=== PATIENT | female | born 1990 | race Caucasian/White ===

== ENCOUNTER 2017-04-18 10:36 | Emergency (ER) | payer MEDICAID ==
[~2017-04-18] VITALS: Ht 154.9 cm; Wt 70.0 kg
[2017-04-18 10:39] VITALS: Ht 154.9 cm; Wt 70.0 kg
[2017-04-18] MEDS ORDERED: ACETAMINOPHEN 325 MG TAB PO ONE (11:00)
--- NOTE | 2017-04-18 11:38 | RADRPT ---
PROCEDURE: US Abdomen. CLINICAL INDICATION: abdominal pain TECHNIQUE: Multiple real-time images were acquired of the patient's right upper quadrant abdomen a nd retroperitoneum utilizing a high resolution transducer. COMPARISON: None FINDINGS: The liver demonstrates normal echogenicity. The liver is normal in size and no focal solid lesions are seen. The liver measures 14.9 cm in length. The portal vein is patent with normal direction of f low. No intrahepatic biliary dilatation is seen. No gallstones are identified within the gallbladder. There is no pericholecystic fluid or gallbladd er wall thickening. The common bile duct measures 5 mm in maximal dimension. The visualized portions of the pancreas are unremarkable. The tail of the pancreas is not seen. No free fluid is identified. The right kidney is normal in size, and demonstrate normal echogenicity and cortical thickness. The right kidney measures 10.6 cm in long dimension. There is no evidence of hydronephrosis. There are no kidney stones. RPTAT: AA IMPRESSION: Unremarkable right upper quadrant abdominal ultrasound. .Jermaine Newby MD, Date Time Electronically viewed and signed by .Jermaine Newby MD, on 04/18/2017 11:38 .S/
[2017-04-18 11:40] LABS: BASOPHILS % 0.2 % (0.0-2.0); EOSINOPHILS % 0.4 % (0.0-7.0); HEMATOCRIT 31.6 % (37.0-47.0); HEMOGLOBIN 10.8 g/dl (12.0-16.0); LYMPHOCYTES % 17.5 % (15.0-51.0); MEAN CORPUSCULAR HGB CONC 34.2 g/dl (32.0-37.0); MEAN CORPUSCULAR VOLUME 87.8 fl (82.0-101.0); MEAN PLATELET VOLUME 10.5 fl (7.4-10.4); MONOCYTE # 0.5 10^3/ul (0.3-0.9); MONOCYTES % 4.7 % (0.0-11.0); NEUTROPHIL # 8.6 10^3/ul (1.6-7.5); NEUTROPHILS % 76.8 % (39.0-77.0); PLATELET COUNT 259 10^3/UL (140-415); RED CELL DISTRIBUTION WIDTH 13.3 % (11.5-14.5); WHITE BLOOD COUNT 11.1 10^3/ul (4.8-10.8)
--- NOTE | 2017-04-18 11:44 | RADRPT ---
PROCEDURE: US OB. CLINICAL INDICATION: Size and dates , abdominal pain TECHNIQUE: Multiple sonographic images of the pelvis and gravid uterus were obtained. The images were reviewed on a PACS workstation. COMPARISON: No prior studies are available for comparison. FINDINGS: There is a single viable intrauterine gestation. Cardiac activity is present with 136 beats per min [place]. There is a variable presentation. The placenta is posterior. There is no evidence for an abruption or placenta previa. There is a normal amount of amniotic fluid with a MVP= 3.8 cm. Measurements were made in order to determine age. The results are as follows: BPD =3.5 cm HC =12.8 cm AC =10.6 cm FL =2.2 cm Estimated gestational age of approximately 16 weeks and 5 days based on ultrasound measurements. Clinical age: 17 weeks and 3 days. The estimated date of delivery is 09/28/17, based on ultrasound measurements. The EFW = 163 g, 8%, based on LMP age. RPTAT: AA IMPRESSION: Single viable intrauterine gestation of approximately 16 weeks and 5 days based on ultrasound measu rements. .Jermaine Newby MD, Date Time Electronically viewed and signed by .Jermaine Newby MD, on 04/18/2017 11:44 .S/
[2017-04-18 12:26] LABS: ADD UMIC YES; UR ASCORBIC ACID NEGATIVE (NEGATIVE); UR BACTERIA FEW /HPF (NONE SEEN); UR BILIRUBIN (Dip) NEGATIVE (NEGATIVE); UR BLOOD (Dip) 1+ mg/dL (NEGATIVE); UR CLARITY CLOUDY (CLEAR); UR COLOR YELLOW (YELLOW); UR GLUCOSE (Dip) NEGATIVE (NEGATIVE); UR KETONES (Dip) TRACE mg/dL (NEGATIVE); UR LEUKOCYTE ESTERASE (Dip) 3+ Leu/ul (NEGATIVE); UR MUCUS MANY /HPF (NONE SEEN); UR NITRITE (Dip) NEGATIVE (NEGATIVE); UR RBC 13 /HPF (0-5); UR SPECIFIC GRAVITY (Dip) 1.031 (1.003-1.030); UR SQUAMOUS EPITHELIAL CELL MANY /HPF (FEW); UR TOTAL PROTEIN (Dip) 1+ mg/dl (NEGATIVE); UR UROBILINOGEN (Dip) NEGATIVE (NEGATIVE)
[2017-04-18] MEDS ORDERED: CEPHALEXIN 500 MG CAP PO ONE (12:30)
[2017-04-18 13:47] LABS: ALBUMIN 3.8 g/dl (3.3-4.9); ALBUMIN/GLOBULIN RATIO 1.31; BILIRUBIN,INDIRECT 0.1 mg/dl (0-1.1); BILIRUBIN,TOTAL 0.1 mg/dl (0.2-1.3); CREATININE 0.34 mg/dl (0.44-1.00); POTASSIUM 3.8 mmol/L (3.5-5.1); TOTAL PROTEIN 6.7 g/dl (6.1-8.1)
[2017-04-18] MEDS ORDERED: ACET325T33 PO (14:20)
[2017-04-18] MEDS ORDERED: CEPH-443 PO (14:20)
--- NOTE | 2017-04-18 14:27 | ERD ---
ER Documentation Chief Complaint Date/Time DATE: 04/18/17 TIME: 14:22 Chief Complaint abdominal pain since yesterday 16 weeks HPI Patient is a 27-year-old female with no medical problems who presents with abdominal pain. She said that she has abdominal pain with breathing. It is right-sided. It started yesterday. She is at about 4 months. She denies fevers. She has no vomiting or diarrhea. She has had no treatment as of yet. [facility] to [facility] care. Upon review of old medical records this is the patient's first visit to the ER. ROS All systems reviewed and are negative except as per history of present illness. Medications Home Meds Active Scripts Acetaminophen* (Tylenol*) 325 Mg Tablet, 2 TAB PO Q8 Y for PAIN AND OR ELEVATED TEMP, #20 TAB Prov:SHANA CARABALLO MD 04/18/17 Cephalexin* (Keflex*) 500 Mg Capsule, 500 MG PO QID for 7 Days, CAP Prov:SHANA CARABALLO MD 04/18/17 Allergies Allergies: Coded Allergies: No Known Allergy (Unverified , 04/18/17) PMhx/Soc Medical and Surgical Hx: pt denies Medical Hx, pt denies Surgical Hx Hx Alcohol Use: No Hx Substance Use: No Hx Tobacco Use: No Smoking Status: Never smoker FmHx Family History: No diabetes Physical Exam Vitals Vital Signs Date Time Temp Pulse Resp B/P Pulse Ox O2 Delivery O2 Flow Rate FiO2 04/18/17 10:39 98.0 89 18 107/52 99 Physical Exam Const: No acute distress Head: Atraumatic Eyes: Normal Conjunctiva ENT: Normal External Ears, Nose and Mouth. Neck: Full range of motion..~ No meningismus. Resp: Clear to auscultation bilaterally Cardio: Regular rate and rhythm, no murmurs Abd: Soft, mild right-sided flank pain with palpation without rebound or guarding Skin: No petechiae or rashes Back: No midline or flank tenderness Ext: No cyanosis, or edema Neur: Awake and alert Psych: Normal Mood and Affect Result Diagram: 04/18/17 1111 04/18/17 1111 Results 24 hrs Laboratory Tests Test 04/18/17 11:11 White Blood Count 11.110^3/ul Red Blood Count 3.6010^6/ul Hemoglobin 10.8g/dl Hematocrit 31.6% Mean Corpuscular Volume 87.8fl Mean Corpuscular Hemoglobin 30.0pg Mean Corpuscular Hemoglobin Concent 34.2g/dl Red Cell Distribution Width 13.3% Platelet Count 16026^3/UL Mean Platelet Volume 10.5fl Neutrophils % 76.8% Lymphocytes % 17.5% Monocytes % 4.7% Eosinophils % 0.4% Basophils % 0.2% Nucleated Red Blood Cells % 0.0/100WBC Neutrophils # 8.610^3/ul Lymphocytes # 2.010^3/ul Monocytes # 0.510^3/ul Eosinophils # 0.010^3/ul Basophils # 0.010^3/ul Nucleated Red Blood Cells # 0.010^3/ul Urine Color YELLOW Urine Clarity CLOUDY Urine pH 5.0 Urine Specific [place] 1.031 Urine Ketones TRACEmg/dL Urine Nitrite NEGATIVEmg/dL Urine Bilirubin NEGATIVEmg/dL Urine Urobilinogen NEGATIVEmg/dL Urine Leukocyte Esterase 3+Moni/ul Urine Microscopic RBC 13/HPF Urine Microscopic WBC 5/HPF Urine Squamous Epithelial Cells MANY/HPF Urine Bacteria FEW/HPF Urine Mucus MANY/HPF Urine Hemoglobin 1+mg/dL Urine Glucose NEGATIVEmg/dL Urine Total Protein 1+mg/dl Sodium Level 139mmol/L Potassium Level 3.8mmol/L Chloride Level 106mmol/L Carbon Dioxide Level 19mmol/L Anion Gap 18 Blood Urea Nitrogen 5mg/dl Creatinine 0.34mg/dl Glucose Level 114mg/dl Calcium Level 9.0mg/dl Total Bilirubin 0.1mg/dl Direct Bilirubin 0.00mg/dl Indirect Bilirubin 0.1mg/dl Aspartate Amino Transf (AST/SGOT) 35IU/L Alanine Aminotransferase (ALT/SGPT) 35IU/L Alkaline Phosphatase 57IU/L Total Protein 6.7g/dl Albumin 3.8g/dl Globulin 2.90g/dl Albumin/Globulin Ratio 1.31 Lipase 327U/L Beta HCG, Quantitative 50572.0mIU/ml Current Medications Medications (Trade) Dose Ordered Sig/Jose Route PRN Reason Start Time Stop Time Status Last Admin Dose Admin Acetaminophen (Tylenol Tab) 650 mg ONCE ONCE PO 04/18/17 11:00 04/18/17 11:01 DC 04/18/17 11:09 Cephalexin (Keflex) 500 mg ONCE ONCE PO 04/18/17 12:30 04/18/17 12:31 DC 04/18/17 12:35 Procedures/MDM Ultrasound the gallbladder is normal per radiology. Ultrasound OB shows a normal intrauterine per radiology. Patient is a 18-year-old female presents with abdominal pain. She was found to have acute cystitis and may have an early pyelonephritis. However she is well- appearing with stable vital signs and I believe outpatient management is appropriate. She is in the second trimester. She will be given Keflex and Tylenol. She can return for any worsening symptoms. She should follow-up with her OB clinic within 24-48 hours. She can return sooner for any worsening symptoms. Departure Diagnosis: Primary Impression: Cystitis Additional Impression: Abdominal pain Abdominal location: unspecified location Qualified Code: R10.9 - Abdominal pain, unspecified location Condition: Fair Patient Instructions: Cystitis, Abdominal Pain, Early Referrals: Your OB doctor Additional Instructions: Llame al doctor MAANA y lexis josé SANTIAGO PARA DENTRO DE 1-2 HERNÁNDEZ.Dgale a la secretaria que nosotros le instruimos hacer esta [place]antiago.Avise o llame si [place] condicin se empeora antes de la [place]. Regresa aqui si peor o no mejor. SHANA CARABALLO MD Apr 18, 2017 14:26
== END 2017-04-18 14:27 | disposition home or self-care (01) ==
LOC: FTE 10:36
DX: O23.12 Infections of bladder in pregnancy, second trimester (principal); R10.9 Unspecified abdominal pain; Z3A.16 16 weeks gestation of pregnancy
CPT/HCPCS: 36415; 76705; 76805; 80053; 81001; 83690; 84702; 85025

== ENCOUNTER 2017-09-13 03:00 | Inpatient (IN) | payer MEDICAID ==
[~2017-09-13] VITALS: Ht 142.2 cm; Wt 81.8 kg
[~2017-09-13 03:00] MED LIST: ACET325T33 PO; CEPH-443 PO
[2017-09-13 03:48] VITALS: Ht 142.2 cm; Wt 81.8 kg
[2017-09-13 03:50] VITALS: BP 112/77; PULSE 82; RESP 18
[2017-09-13] MEDS ORDERED: LACTATED RINGER'S 1,000 ML IV SCH ×2 (03:53→04:47)
[2017-09-13] MEDS ORDERED: CARBOPROST 250 MCG INJ IM PRN ×3 (04:00→15:30)
[2017-09-13] MEDS ORDERED: BUTORPHANOL 2 MG INJ IV PRN (04:00)
[2017-09-13] MEDS ORDERED: AMPICILLIN 2 GM/NS (PMX) 100 ML IV ONE (04:00)
[2017-09-13] MEDS ORDERED: MISOPROSTOL 200 MCG TAB PR PRN ×3 (04:00→15:30)
[2017-09-13] MEDS ORDERED: METHYLERGONOVINE 0.2 MG INJ IM PRN ×3 (04:00→15:30)
[2017-09-13] MEDS ORDERED: IBUPROFEN 600 MG TAB PO PRN (04:00)
[2017-09-13] MEDS ORDERED: OXYTOCIN 30 UNITS/LR 500 ML IV PRN ×3 (04:00→15:30)
[2017-09-13] MEDS ORDERED: LIDOCAINE 1% (MPF) 30 ML INJ INJ PRN (04:00)
[2017-09-13] MEDS ORDERED: CEFAZOLIN 2 GM/50 ML (PMX) 50 ML IV SCH (05:00)
[2017-09-13 06:08] LABS: BASOPHILS % 0.2 % (0.0-2.0); EOSINOPHILS % 0.4 % (0.0-7.0); HEMATOCRIT 31.5 % (37.0-47.0); HEMOGLOBIN 10.2 g/dl (12.0-16.0); LYMPHOCYTES # 2.1 10^3/ul (0.8-2.9); LYMPHOCYTES % 19.6 % (15.0-51.0); MEAN CORPUSCULAR HEMOGLOBIN 26.6 pg (29.0-33.0); MEAN CORPUSCULAR HGB CONC 32.4 g/dl (32.0-37.0); MONOCYTE # 0.6 10^3/ul (0.3-0.9); MONOCYTES % 5.8 % (0.0-11.0); NEUTROPHIL # 7.8 10^3/ul (1.6-7.5); NEUTROPHILS % 73.3 % (39.0-77.0); PLATELET COUNT 287 10^3/UL (140-415); RED BLOOD COUNT 3.84 10^6/ul (4.20-5.40); RED CELL DISTRIBUTION WIDTH 14.7 % (11.5-14.5); WHITE BLOOD COUNT 10.6 10^3/ul (4.8-10.8)
--- NOTE | 2017-09-13 06:20 | TRIAGE ---
OB Triage Datetime Report Generated by CPN: 09/13/2017 06:20 Datetime: 09/13/2017 05:45 Assessment Type: Admission Assessment Vaginal Bleeding: None Maternal Assessment Level of Consciousness: Fully Conscious DTR's/Clonus: DTRs 2+; No Clonus Headache: Denies Blurred Vision: No Respiratory Effort: Unlabored; Regular Rhythm; Equal Expansion Breath Sounds, Left: Clear and Equal Breath Sounds, Right: Clear and Equal Nausea/Vomiting: Denies RUQ Epigastric Pain: Denies Lower Extremities Edema: None Degree: None Upper Extremities Edema: None Degree: None Facial Edema: None Fall Risk Assessment History of Falling: (0) No Secondary Diagnosis: (0) No Ambulatory Aid: (0) Bedrest/Nurse Assist IV Therapy: (20) Yes Gait: (0) Normal/Bedrest/Immobile Mental Status: (0) Oriented to Own Ability Fall Score: 20 Fall Risk Score Definition: No Risk: No action required Comment: Labor Evaluation Frequency: 6-10 Quality: Mild Pattern: Normal: <= 5 Contractions in 10 Minutes Resting Tone [place]: Relaxed Heart Rate FHR Baseline Rate: 120 Variability: Moderate 6-25 bpm Accelerations: 15X15 Decelerations: None Category: Category I Pain Assessment Pain Scale: 5 Pain Presence: Intermittent Pain Type: Cramping Pain Location: Abdomen Pain Goal: 3 Pain Assessment Comments: Vaginal Exam Dilatation (cms): 0.0 Membrane Status: Intact Datetime: 09/13/2017 05:22 Stage of : Labor Monitor Mode: External Quality: Mild Pattern: Normal: <= 5 Contractions in 10 Minutes Resting Tone [place]: Relaxed Heart Rate FHR Baseline Rate: 125 Monitor Mode: External US Variability: Moderate 6-25 bpm Accelerations: 15X15 Decelerations: None Category: Category I Datetime: 09/13/2017 04:40 Stage of : OB Triage Datetime: 09/13/2017 04:37 Stage of : OB Triage Datetime: 09/13/2017 04:22 Stage of : OB Triage Labor Evaluation Frequency: 6-10 Monitor Mode: External Quality: Mild Pattern: Normal: <= 5 Contractions in 10 Minutes Resting Tone [place]: Relaxed Heart Rate FHR Baseline Rate: 130 Monitor Mode: External US FHR Baseline Changes: No Baseline Change Variability: Moderate 6-25 bpm Accelerations: 15X15 Decelerations: None Category: Category I Vaginal Exam Dilatation (cms): 0.0 Effacement (%): 30 Station: -3 Exam By: Warren Philip Membrane Status: Intact Vaginal Bleeding: None Cervix, Consistency: Moderate Cervix, Position: Posterior Datetime: 09/13/2017 03:34 Time of Arrival: 09/13/2017 02:56 EGA: 38.3 Arrived By: Wheelchair Arrived From: Home Chief Complaint: c/o ucs. States hx c/s "@ 4 months 14 yrs ago". States desires . Movement: Present Contractions: Irregular Time Contractions Began: 09/13/2017 00:40 Contractions: q10 Rupture of Membranes: Denies Vaginal Bleeding: None Vaginal Discharge: Denies Recent Sexual Intercouse: Denies Abdominal Trauma: Not Applicable Patient Complaints: Contractions Time Provider Notified: 09/13/2017 04:37 Provider Notified: Dr Garland Initial Plan: EFM,SVE Datetime: 09/13/2017 03:15 Stage of : OB Triage Maternal Assessment Level of Consciousness: Fully Conscious Headache: Denies Blurred Vision: No Respiratory Effort: Unlabored Nausea/Vomiting: Denies RUQ Epigastric Pain: Denies Facial Edema: None Labor Evaluation Frequency: placed Monitor Mode: External Resting Tone [place]: Relaxed Monitor Mode: External US Comments: FHT 130 Pain Assessment Pain Scale: 6 Pain Presence: Intermittent Pain Type: Contraction Pain Location: Abdomen
[2017-09-13 06:24] LABS: INR 0.88; PT RATIO 0.9
[2017-09-13 06:25] LABS: PARTIAL THROMBOPLASTIN TIME 27.7 Sec (25.0-35.0)
[2017-09-13] MEDS ORDERED: EPHEDrine SULFATE 50 MG/5 ML SYG ONE (07:00)
[2017-09-13] MEDS ORDERED: AMPICILLIN 1 GM/NS (PMX) 50 ML IV SCH (08:00)
[2017-09-13] MEDS ORDERED: LACTATED RINGER'S 1,000 ML IV ONE (08:51)
[2017-09-13] MEDS ORDERED: METOCLOPRAMIDE 10 MG INJ IV ONE (09:00)
[2017-09-13] MEDS ORDERED: CITRIC ACID/SODIUM CITRATE 15 ML CUP PO ONE (09:00)
[2017-09-13] MEDS ORDERED: FAMOTIDINE 20 MG INJ IV ONE (09:00)
[2017-09-13] MEDS ORDERED: FENTAnyl 50 MCG/ML VIAL ONE (10:11)
[2017-09-13] MEDS ORDERED: morphine SULFATE/PF (10 MG/10 ML) INJ ONE (10:11)
[2017-09-13] MEDS ORDERED: PHENYLephrine (100 MCG/ML) 5ML SYG ONE (10:22)
[2017-09-13] MEDS ORDERED: MEPERIDINE 25 MG INJ IV PRN (10:30)
[2017-09-13] MEDS ORDERED: KETOROLAC 30 MG INJ IV PRN (10:30)
[2017-09-13] MEDS ORDERED: FENTAnyl 50 MCG/ML VIAL IV PRN ×3 (10:30)
[2017-09-13] MEDS ORDERED: PROCHLORPERAZINE 10 MG INJ IV PRN (10:30)
[2017-09-13] MEDS ORDERED: DIPHENHYDRAMINE 50 MG INJ IV PRN ×2 (10:30→15:30)
[2017-09-13] MEDS ORDERED: HYDROmorphONE (0.2 MG/ML) 10ML SYG IV PRN ×3 (10:30)
[2017-09-13] MEDS ORDERED: ONDANSETRON 4 MG INJ IV PRN ×2 (10:30→15:30)
[2017-09-13] MEDS ORDERED: ONDANSETRON 4 MG INJ ONE (10:43)
[2017-09-13] MEDS ORDERED: OXYTOCIN 30 UNITS/LR 500 ML IV ONE (10:43)
--- NOTE | 2017-09-13 11:09 | HP ---
Date/Time of Note Date/Time of Note DATE: 09/13/17 TIME: 11:07 OB - History Hx of Present Free Text/Dictation 38+wks GA labor previous c/section Care: Good Care Ultrasounds: No ultrasounds Obstetrical Complications: None Medical Complications: None Past Family/Social History * Past Medical, Surgical, Family and Obstetric Histories reviewed from chart. OB Admission Exam Vital Signs Vital Signs Vital Signs Date Time Temp Pulse Resp B/P Pulse Ox O2 Delivery O2 Flow Rate FiO2 09/13/17 03:50 98.4 82 18 112/77 Room Air Physical Exam Abdomen: WNL Extremities: Normal Cervical Dilatation: 2cm Effacement: 50% Station: -1 Membranes: Intact Heart Rate: 140's Accelerations: Accelerations Present Decelerations: No Decelerations Varibility: Moderate Contractions on Admission: 6-10 Minutes Apart Last 72 hours Lab Results CBC & BMP 09/13/17 05:20 OB Assessment/Plan Reason for admission: observation Plan: Section ANA STORM M.D. Sep 13, 2017 11:09
--- NOTE | 2017-09-13 11:13 | OPPN ---
Date/Time of Note Date/Time of Note DATE: 09/13/17 TIME: 11:09 Operative Report Planned Procedure Procedure date Sep 13, 2017 Procedure(s) Repeat c/section Performed by see signature line Storekeeper Helper Anesthesiologist: JULISA LÓPEZ MD Pre-procedure diagnosis Previous c/section 38+wks GA Anesthesia Type: spinal Post-Procedure Post-procedure diagnosis Previous c/section 38+wks GA Findings Live Baby [], Apgars [] and [], weight [], position [], [] presentation []cord. Estimated Blood Loss: 500 - 600 mls Specimen(s) none Grafts/Implant(s) none Complication(s) none ANA STORM M.D. Sep 13, 2017 11:13
[2017-09-13] MEDS: OXYTOCIN 30 UNITS/LR 500 ML IV SCH ×2 (11:25→15:47)
[2017-09-13 15:10] VITALS: BP 104/57; PULSE 89; RESP 18
[2017-09-13] MEDS: LACTATED RINGER'S 1,000 ML IV SCH ×2 (15:13→19:54)
[2017-09-13 15:25] VITALS: BP 108/50; PULSE 85; RESP 18
[2017-09-13] MEDS ORDERED: LANOLIN 7 GM TUBE TOP PRN (15:30)
[2017-09-13] MEDS ORDERED: HYDROmorphONE 0.5 MG/0.5 ML SYG IV PRN ×2 (15:30)
[2017-09-13] MEDS ORDERED: ZOLPIDEM 5 MG TAB PO PRN (15:30)
[2017-09-13] MEDS ORDERED: NALOXONE (0.4 MG/ML) INJ IV PRN (15:30)
[2017-09-13] MEDS: IBUPROFEN 600 MG TAB PO SCH (15:38)
[2017-09-13 16:00] VITALS: BP 109/55; PULSE 84; RESP 19
[2017-09-13 17:00] VITALS: BP 113/67; PULSE 95; RESP 18
[2017-09-13] MEDS: KETOROLAC 30 MG INJ IV PRN (18:22)
[2017-09-13 20:00] VITALS: BP 106/61; PULSE 94; RESP 22
[2017-09-13] MEDS: SENNA/DOCUSATE NA (8.6MG/50MG) TAB PO SCH (21:01)
[2017-09-14] VITALS: BP 109/61; PULSE 98; RESP 18
[2017-09-14] MEDS: LACTATED RINGER'S 1,000 ML IV SCH (03:58)
[2017-09-14 04:08] VITALS: BP 98/53; PULSE 97; RESP 18
[2017-09-14] MEDS: IBUPROFEN 600 MG TAB PO SCH ×4 (06:00→17:56)
[2017-09-14 07:45] VITALS: BP 105/61; PULSE 104; RESP 19
[2017-09-14] MEDS: SENNA/DOCUSATE NA (8.6MG/50MG) TAB PO SCH ×2 (09:34→21:30)
[2017-09-14] MEDS: KETOROLAC 30 MG INJ IV PRN (09:35)
[2017-09-14 10:06] LABS: BASOPHILS % 0.2 % (0.0-2.0); EOSINOPHILS % 0.3 % (0.0-7.0); HEMATOCRIT 27.1 % (37.0-47.0); HEMOGLOBIN 8.9 g/dl (12.0-16.0); LYMPHOCYTES # 1.3 10^3/ul (0.8-2.9); LYMPHOCYTES % 11.7 % (15.0-51.0); MEAN CORPUSCULAR HEMOGLOBIN 27.1 pg (29.0-33.0); MEAN CORPUSCULAR HGB CONC 32.8 g/dl (32.0-37.0); MEAN CORPUSCULAR VOLUME 82.4 fl (82.0-101.0); MEAN PLATELET VOLUME 11.1 fl (7.4-10.4); MONOCYTE # 0.5 10^3/ul (0.3-0.9); MONOCYTES % 4.8 % (0.0-11.0); NEUTROPHIL # 8.8 10^3/ul (1.6-7.5); NEUTROPHILS % 82.5 % (39.0-77.0); PLATELET COUNT 225 10^3/UL (140-415); RED BLOOD COUNT 3.29 10^6/ul (4.20-5.40); RED CELL DISTRIBUTION WIDTH 15.4 % (11.5-14.5); WHITE BLOOD COUNT 10.7 10^3/ul (4.8-10.8)
[2017-09-14 12:07] VITALS: BP 103/55; PULSE 95; RESP 19
--- NOTE | 2017-09-14 13:58 | QN ---
Documentation Comment POD#1 is stable afebrile No VB +BM +Voids VS satble Gen NAD Abd Sost NT ND Incision intact Genitalia No blood at perinium --->discharge plan tomorrow ANA STORM M.D. Sep 14, 2017 13:58
--- NOTE | 2017-09-14 13:59 | DS ---
Date/Time of Note Date/Time of Note DATE: 09/14/17 TIME: 13:58 Discharge Summary Admission/Discharge Info Admit Date/Time Sep 13, 2017 at 04:37 Discharge Date/Time 09/15/17 Discharge Diagnosis Patient Condition: Good Procedures Repeat c/s Hospital Course uneventful Home Meds Active Scripts Acetaminophen* (Tylenol*) 325 Mg Tablet, 2 TAB PO Q8 Y for PAIN AND OR ELEVATED TEMP, #20 TAB Prov:SHANA CARABALLO MD 04/18/17 Cephalexin* (Keflex*) 500 Mg Capsule, 500 MG PO QID for 7 Days, CAP Prov:SHANA CARABALLO MD 04/18/17 Primary Care Provider Care Physician No Primary Pending Labs Laboratory Tests Test 09/14/17 09:44 White Blood Count 10.710^3/ul (4.8-10.8) Red Blood Count 3.2910^6/ul (4.20-5.40) Hemoglobin 8.9g/dl (12.0-16.0) Hematocrit 27.1% (37.0-47.0) Mean Corpuscular Volume 82.4fl (82.0-101.0) Mean Corpuscular Hemoglobin 27.1pg (29.0-33.0) Mean Corpuscular Hemoglobin Concent 32.8g/dl (32.0-37.0) Red Cell Distribution Width 15.4% (11.5-14.5) Platelet Count 61215^3/UL (140-415) Mean Platelet Volume 11.1fl (7.4-10.4) Neutrophils % 82.5% (39.0-77.0) Lymphocytes % 11.7% (15.0-51.0) Monocytes % 4.8% (0.0-11.0) Eosinophils % 0.3% (0.0-7.0) Basophils % 0.2% (0.0-2.0) Nucleated Red Blood Cells % 0.0/100WBC (0.0-0.0) Neutrophils # 8.810^3/ul (1.6-7.5) Lymphocytes # 1.310^3/ul (0.8-2.9) Monocytes # 0.510^3/ul (0.3-0.9) Eosinophils # 0.010^3/ul (0.0-0.5) Basophils # 0.010^3/ul (0.0-0.1) Nucleated Red Blood Cells # 0.010^3/ul (0.0-0.0) ANA STORM M.D. Sep 14, 2017 13:59
--- NOTE | 2017-09-14 14:27 | OPR ---
DATE OF OPERATION: 09/13/2017 PREOPERATIVE DIAGNOSIS: A 38+ weeks' gestational age, history of previous section, in labo r. POSTOPERATIVE DIAGNOSIS: A 38+ weeks' gestational age, history of previous section, in lab or. OPERATION PERFORMED: Repeat section. ATTENDING SURGEON: Dr. Garland. TELEVISION ANTENNA INSTALLER DOCTOR: Matilde. TYPE OF ANESTHESIA: Spinal. ANESTHESIOLOGIST: Dr. Ibanez. TECHNIQUE: The patient was taken to the operating room where spinal anesthesia was found to be adeq uate. Patient was placed in supine position. After prep and drape, a Pfannenstiel incision was mad e 2 cm above the symphysis pubis. It was extended to the underlying fascia. Fascia was nicked in t he midline. Fascial incision was extended bilaterally. Fascia was from underlying muscle s. Muscle was in the midline. Peritoneum was entered sharply. Peritoneal incision was e xtended. Bladder blade was placed inside the abdominal cavity. Bladder flap was made. Lower uteri ne segment incision was made. Baby was delivered vertex, handed to the NICU team. Cord blood sent. Placenta was removed manually. Uterus was exteriorized. Intrauterine cavity was cleaned using 2 sponges. Lower uterine segment incision was closed in 1 layer using 0 looped PDS sutures. Gutters were cleaned. Uterus was inserted inside the abdominal cavity. Peritoneum and muscles were reappro ximated using 2-0 chromic sutures. Fascia was closed in a running nonlocking fashion using 0 looped PDS sutures. Subcutaneous tissue was closed using plain sutures. Skin was closed using 3-0 Monocr yl sutures. Dermabond was placed on top of the incision. The patient tolerated the procedure well and was transferred to recovery room in stable condition. There was no complication regarding this surgery. Dictated By: ANA CHILD/EVELINE Conf#: [id number] DID#: [id number]
[2017-09-14 15:55] VITALS: BP 101/76; RESP 14
[2017-09-14] MEDS ORDERED: INFLUENZA VIRUS VACCINE 0.5 ML SYG IM* ONE (18:00)
[2017-09-14 19:55] VITALS: BP 116/95; PULSE 88; RESP 18
[2017-09-15] MEDS: IBUPROFEN 600 MG TAB PO SCH ×4 (00:25→17:20)
[2017-09-15 04:35] VITALS: BP 109/58; PULSE 86; RESP 18
[2017-09-15 08:01] VITALS: BP 109/69; RESP 18
[2017-09-15] MEDS ORDERED: INFLUENZA VIRUS VACCINE 0.5 ML (DISPENSING) IM* ONE (09:00)
[2017-09-15] MEDS: SENNA/DOCUSATE NA (8.6MG/50MG) TAB PO SCH ×2 (09:06→21:47)
[2017-09-15] MEDS: OXYCODONE/ACETAMINOPHEN (5/325) TAB PO PRN (10:48)
[2017-09-15 16:00] VITALS: BP 104/65; RESP 16
[2017-09-15 19:30] VITALS: BP 114/68; PULSE 90; RESP 18
[2017-09-16] MEDS: IBUPROFEN 600 MG TAB PO SCH ×4 (00:16→17:53)
[2017-09-16 04:00] VITALS: BP 99/56; PULSE 88; RESP 18
[2017-09-16 08:15] VITALS: BP 116/62; PULSE 78; RESP 16
[2017-09-16] MEDS ORDERED: DIPHTH/TET/ACEL PERTUSS (ADULT) 0.5 ML VIAL IM* ONE (09:00)
[2017-09-16] MEDS: SENNA/DOCUSATE NA (8.6MG/50MG) TAB PO SCH (09:53)
[2017-09-16] MEDS: OXYCODONE/ACETAMINOPHEN (5/325) TAB PO PRN (09:57)
[2017-09-16 16:00] VITALS: BP 110/62; PULSE 82; RESP 16
== END 2017-09-16 18:45 | disposition home or self-care (01) | DRG 766 ==
LOC: L-D 03:00 → OBT 03:00 → L-D 04:37 → OBT 04:37 → L-D 10:07 → PP1 15:06
PROVIDERS: ADMIT Obstetrics & Gynecology; ATTEND Obstetrics & Gynecology
PROC: 3E033VJ Introduction of Other Hormone into Peripheral Vein, Percutaneous Approach (ICD-10-PCS; 2017-09-13)
PROC: 10D00Z1 Extraction of Products of Conception, Low, Open Approach (ICD-10-PCS; principal; 2017-09-13 10:45)
DX: O34.211 Maternal care for low transverse scar from previous cesarean delivery (principal); Z37.0 Single live birth; Z3A.38 38 weeks gestation of pregnancy
CPT/HCPCS: 85025; 85610; 85730; 86592; 86850; 86900; 86901; 90686; 90715; 94760; 99464; G0463; J0690; J1885; J2274; J2370; J2405; J2590; J2765; J3010; J7120